=== PATIENT | male | born 1965 | race Caucasian/White ===

== ENCOUNTER 2017-03-20 12:36 | Inpatient (IN) | payer MEDICAID, OTHER ==
[2017-03-20] MEDS ORDERED: MAGNESIUM HYDROXIDE 2,400 MG/10 ML CUP PO PRN (15:47)
[2017-03-20] MEDS ORDERED: ACETAMINOPHEN TAB 325 MG TAB PO PRN (15:47)
[2017-03-20] MEDS ORDERED: MAG HYDROX/AL HYDROX/SIMETH 30 ML CUP PO PRN (15:47)
[2017-03-20 16:01] VITALS: BMI 24.6
--- NOTE | 2017-03-20 16:13 | P.HP ---
Psychiatric H&P - . H&P Date: 03/20/17 History & Physical: Identification: Patient is a 51-year-old male who was brought to the hospital from long-term, he states he was brought to long-term on March 18 due to failure to pay child support. He was then transferred here on a petition and certification. Patient had made statements while in long-term that he "felt like blowing my head off ". Patient states he did say that due to becoming increasingly frustrated with being in long-term. 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 He states that after the thousand dollar a month child support was taken from his check he was going home with $5 or $10. Patient states he got irritated with his low paychecks and the money that was due for child support, he had attempted to reduce this amount on 2 occasions without success and so he quit his job. 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 Patient states that about a month and a half ago he went to [facility] due to his increasing irritability and anger about his inability to pay his bills. He reports he was feeling depressed, getting angry and having outbursts, yelling and fighting. He reports no suicidal ideation, and states he was started on Effexor and after he was on his current dose, began to feel less irritable, stopped arguing with people and felt much less depressed. He states he was sleeping better and felt much calmer on the medication. He states his children were visiting him, as he was to have his 2 younger children for the month of February, when his came and got them from his house at night and he was picked up the next morning for lack of payment of child support. He reports he is behind by $5000. He states in long-term he was becoming increasingly agitated and upset and does admit to saying that he "felt like blowing his head off". Patient reports that he has no guns at home, he states he had them in the past but sold them for money to pay his child support. He states he does not want to , he has 3 children and wants to live. Patient reports that his new employer has paid his back child support and the patient reports planning to sell the home he is currently living in and move in with his mother. Patient states he is eager to begin his new job, stating he was supposed to start tomorrow. Patient is unable to endorse any symptoms of jannie, psychosis and denies any anxiety symptoms. Patient's depressive symptoms have only recently started and he denies any prior depressive symptoms. Past Psychiatric History: Patient denies any prior inpatient admissions, recently began at [facility] 1-1/2 months ago as his only outpatient psychiatric treatment. Past Medical/Surgical History: Patient denies any current medical problems and does report multiple fractures from playing sports, both ankles, all the fingers in both hands and his collarbone; he fractured his left femur at the age of 9 and fractured his collarbone at the age of 5. He reports he's had arthroscopy on his right knee due to sports injuries. Patient reports one LOC while playing football at the age of 18. Patient is also status post cholecystectomy. Patient denies any ALLERGIES to any medications. Allergies Allergy/AdvReac Type Severity Reaction Status Date / Time No Known Allergies Allergy Verified 12/06/14 03:17 Current Medications: Effexor 75 mg extended release every morning Family History: Patient denies any family history of psychiatric illness, denies any substance abuse history in the family and denies any completed suicides. Social History: Patient was born and raised in [place], his parents when he was 19 years of age. Both of his parents are still alive and he reports no contact with father since his parents . He is the oldest of 3 and has a brother and sister and reports being close to his mother and both siblings. His sister who has been providing financial support along with his mother, lives in [place]. Patient states that he completed high school and was very active in all sports. 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 He did this for the next 10 years until his DUI in July 2016 when he lost his job. 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 He reports he was for 21 years and in 2013, she asked him to leave as he was never at home. He has 3 children ages 21, 15 and 13. He states he has been living on his own and now will sell his mobile home and move in with his mother. His mother and sister have been assisting him financially since he lost his job driving trucks. He states when he lost that job his financial status decreased significantly as he was working 80 hours a week, with 40 hours of it being overtime pay. Patient denies any history of sexual, physical or emotional abuse. Substance Use History: Patient smokes 1-1/2 packs of cigarettes a day and has smoked for the last 30 years. Patient reports that he currently uses 4 beers a week and once a month will drink 6-8 beers with friends, he states he was drinking more in the past, about 4-5 beers a day for several months around the time of his DUI. Patient reports that he uses marijuana and has since the age of 16, usually 3 times a week. He denies any other drug abuse currently or in the past. Legal History: Patient states he has one prior DUI, recent failure to pay child support. Mental Status:Appearance/Attitude: Patient was dressed in hospital gown, personal hygiene was adequate and he was cooperative during the interview. Behavior: Patient exhibited no psychomotor retardation or agitation. Speech/Language: Patient was spontaneous, speech is of normal volume and rhythm. Thought Process: Patient was goal-directed and there is no evidence of any circumstantial or tangential thought. Thought Content: Denied any auditory or visual hallucinations and denied any paranoid or delusional ideation and none was elicited. Patient discussed his frustration with being in long-term as well as his anger and frustration about being unable to pay his bills. Patient reports that he sought treatment one half months ago as he was becoming increasingly angry and irritable, getting into outbursts and yelling with people. He was feeling slightly depressed at that time but reports no change in his level of energy or motivation. He reports that he was becoming frustrated with his inability to take more than 5 or $10 home from each paycheck. Suicidal/Homicidal Ideation: Patient denies any current suicidal ideation, states that he did say he "felt like blowing my head off" while in long-term and states it was due to his frustration with being there and reports that he has no wish to as he has 3 children. He reports no prior suicidal attempts or suicidal ideation. He denies any current homicidal ideation. Sensorium/Cognition: Patient is alert and oriented to person, place, and time and his memory is grossly intact. Mood/Affect: Patient's mood is euthymic, states he is not feeling depressed and was frustrated in long-term and his affect is appropriate. Insight/Judgement: Patient insight and judgment are fair. Strength/Weaknesses: Patient has a supportive family, stable living situation, employment Assessment: Patient presents after being taken to long-term for back child support, where he made the statement that he felt like blowing his head off. Patient has been in treatment for the last 1-1/[address] [facility] for increasing irritability and depression due to being unable to pay his bills. 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 He began to get behind in child support, struggling to paying his bills and became increasingly angry with outbursts and yelling and depressed. Patient was begun on Effexor at [facility] and he reports a good response to 75 mg every morning. He reports he is much less irritable and not arguing with anyone and is feeling much less depressed. 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 Patient is denying any current suicidal ideation, states that he has 3 children and he wants to live and only made that statement in long-term due to his frustration with being there. Patient denies that he has any guns at home stating that he sold them in the past for money. Admission Diagnoses: Major depressive disorder, single episode, moderate severity; cannabis use disorder, mild, tobacco use disorder, moderate Plan: Patient was agreeable to a voluntary admission, he will be continued on Effexor 75mg XR every morning to target his depression. Patient signed a RONAK to speak with his mother. Will place on general precautions, order group and activity therapy, labs will be ordered, CBC, CMP, UA, UDS, TSH. Patient and I discussed a brief hospital to stay to observe him, clarify his statements regarding guns. 03/20/17 15:31 03/20/17 15:58 03/20/17 15:59 03/20/17 16:04 03/20/17 16:06
[2017-03-21] MEDS: VENLAFAXINE HCL ER 75 MG CAP PO SCH (08:59)
[2017-03-21 09:19] LABS: Basophils % (A) 0 %; CH 33.7; CHCM 33.3; Eosinophils # (A) 0.1 k/uL (0-0.7); Eosinophils % (A) 1 %; HCT 47.1 % (39.0-53.0); Luc # (Auto) 0.07; Luc % (Auto) 1; Lymphocytes # (A) 1.2 k/uL (1.0-4.8); Lymphocytes % (A) 16 %; MCH 34.5 pg (25.0-35.0); MCHC 33.9 g/dL (31.0-37.0); MCV 101.8 fL (80.0-100.0); Macrocytosis Slight; Mean Platelet Volume 6.7; Monocytes # (A) 0.4 k/uL (0-1.0); Monocytes % (A) 5 %; Neutrophils # (A) 5.9 k/uL (1.3-7.7); Neutrophils % (A) 77 %; RBC 4.63 m/uL (4.30-5.90); RDW 13.8 % (11.5-15.5); WBC 7.7 k/uL (3.8-10.6); WBC (Perox) 7.34
[2017-03-21 09:32] LABS: ALT 34 U/L (21-72); AST 21 U/L (17-59); Alkaline Phosphatase 57 U/L (38-126); Anion Gap 7 mmol/L; Bilirubin, Delta 0.2 mg/dL (0.0-0.2); Blood Urea Nitrogen 20 mg/dL (9-20); Calcium 9.6 mg/dL (8.4-10.2); Carbon Dioxide 30 mmol/L (22-30); Chloride 103 mmol/L (98-107); Glucose 111 mg/dL (74-99); Non-African American GFR(MDRD) >60 (>60 ml/min/1.73 sqM); Potassium 5.1 mmol/L (3.5-5.1); Sodium 140 mmol/L (137-145); Total Bilirubin 0.9 mg/dL (0.2-1.3); Total Protein 7.3 g/dL (6.3-8.2)
--- NOTE | 2017-03-21 11:19 | P.PN ---
Progress Note - Text Interval history: The patient is found in the hallway he follows me to an interview room. The patient was admitted from the alf for suspected suicidal ideation. The patient states that he has been overwhelmed with legal and financial consequences due to nonpayment of child support. He states out of anger he punched a cement wall while in alf. Subsequently he has edema and bruising of his right hand. He had been placed on Effexor XR 75 mg daily by his outpatient psychiatrist he has found the medication helpful we have continued that medication here. Mental status exam: The patient is a male appearing his stated age he is dressed in hospital gowns. Eye contact is appropriate he's pleasant cooperative and easily directed. There is noticeable edema of his right hand with bruising. He states he does not have any suicidal ideation intent or plan he endorses no homicidal ideation intent or plan. He is endorsing no symptoms of psychosis there is no evidence of psychosis. He does not appear hypomanic or manic. Insight and judgment grossly intact however it was impaired when he was in the alf. There is no verbal or physical aggressiveness during this session. Plan: The patient will continue on the Effexor XR he finds effective. We will consider titrating the dose if needed. We will go ahead and x-ray his right hand to rule out fracture. We will monitor him for safety and encourage his participation in the milieu. I don't signs reviewed.
--- NOTE | 2017-03-21 11:29 | XR ---
EXAMINATION TYPE: XR hand complete RT DATE OF EXAM: 03/21/2017 CLINICAL HISTORY: pain TECHNIQUE: Frontal, lateral and oblique images of the right hand are obtained. COMPARISON: None. FINDINGS: Cortical lucency is noted at the base of the right fifth metacarpal felt to reflect fractur e. There appears to be mild comminution and intra-articular extension. The joint spaces appear within normal limits. Soft tissue edema noted. IMPRESSION: Fracture at the base of the right fifth metacarpal. ICD 10 closed FRACTURE, INITIAL EVALUATION
[2017-03-22] MEDS: VENLAFAXINE HCL ER 75 MG CAP PO SCH (08:08)
--- NOTE | 2017-03-22 09:38 | P.PN ---
Progress Note - Text Interval history: The patient is found in group he follows me to an interview room. He reports his mood is "good". He states that he is finding the groups supportive and useful. He is relieved to know that his boss pages back child support and he states the correction issue is "all done". He states he never really did feel suicidal but was just overwhelmed with circumstances. He has been seen by the physician insurance legal assistant from orthopedics and the patient is now wearing an immobilizer and Saurabh wrap on his right hand. He states he was told he will need to follow-up as an outpatient with orthopedics and might require surgery if the fracture does not heal appropriately due to its location. Mental status exam: The patient is alert he is pleasant cooperative. He readily engages in the interview. Eye contact is good. He is wearing eyeglasses and is dressed in his own clothing a T-shirt and shorts. His affect is euthymic. He reports no suicidal or homicidal ideation intent or plan. He endorses no auditory or visual hallucinations or specific delusions. There is no observed evidence of psychosis. He does not appear hypomanic or manic. There is no verbal or physical aggressiveness. Insight and judgment improving. He is oriented to person place and date. Thought process is linear and goal- directed. Plan: The patient will continue on the Effexor XR. It appears that he is clinically stabilizing. I would anticipate he would be appropriate for discharge in the next 1-2 days if he demonstrates continued stability/ improvement. He is encouraged to continue compliant with groups. Vital signs reviewed. We will continue to monitor him for safety.
--- NOTE | 2017-03-22 10:08 | P.CNOR ---
History of Present Illness - [facility] Consult date: 03/22/17 Consult reason: fracture History of present illness: This is a 51-year-old male who is seen and evaluated on the mental health unit today. Patient was transferred from [facility] to [facility] on 03/20/2017 with apparent suicidal ideation. He was admitted to the psychiatric floor for further evaluation. Apparently the patient has been going through some legal and financial trouble. Patient was brought in by authorities due to not pain child support. While in [facility], he punched a cement wall and also mentioned suicide which prompted his admission to [facility]. He is been evaluated by the mental health physicians, and is being followed daily. During the stay, he had noted significant bruising and swelling to his hand. X-rays were ordered, which demonstrated a fifth metacarpal base fracture. However orthopedic team was consulted. Patient is seen on the unit today, he appears comfortable. He is having very minimal discomfort with regards to the right hand. He is not currently splinted or casted. He notes discomfort to the right hand when he makes a full fist or has direct contact over the fifth metacarpal. He denies any discomfort of the right elbow or right shoulder. He denies any left upper extremity pain, bilateral lower extremity pain, new onset cervical, thoracic or lumbar pain. Review of Systems Constitutional: Reports as per [facility] Past Medical History Past Medical History: No Reported History Additional Past Medical History / Comment(s): ganglian cyst bilat wrist History of Any Multi-Drug Resistant Organisms: None Reported Past Surgical History: Cholecystectomy, Orthopedic Surgery Additional Past Surgical History / Comment(s): bilat ankle surgery Past Psychological History: No Psychological Hx Reported Smoking Status: Current every day smoker Past Alcohol Use History: Daily Past Drug Use History: None Reported Medications and Allergies Home Medications Medication Instructions Recorded Confirmed Type Venlafaxine HCl [Effexor XR] 75 mg PO DAILY 03/20/17 03/20/17 History Allergies Allergy/AdvReac Type Severity Reaction Status Date / Time No Known Allergies Allergy Verified 03/20/17 15:41 Physical Examination Right upper extremity: No obvious open lesions or sores visualized There is ecchymosis and soft tissue swelling noted both on the volar and dorsal aspect of the hand in the fifth metacarpal region There is tenderness with palpation noted both the volar and dorsal aspect of the fifth metacarpal No obvious malalignment is noted of fifth digit He is able to move all the fingers with no difficulty, he is able to make a fist His radial pulses 2+, sensory exam to light touch is intact throughout the extremity No discomfort with palpation around the elbow or shoulder Results - Labs Labs: H & H 03/21/17 Range/Units 08:56 Hgb 16.0 (13.0-17.5) gm/dL Hct 47.1 (39.0-53.0) % Result Diagrams: 03/21/17 08:56 03/21/17 08:56 - Diagnostic results Wrist/Hand x-ray: report reviewed, image reviewed Assessment and Plan Plan: Imaging: Multiple views of the hand were reviewed, images do demonstrate a right fifth metacarpal intra-articular base fracture with displacement Assessment: 1. Right fifth metacarpal intra-articular base fracture 2. Status post punching a wall Plan: 1. I was able to discuss this case, including both physical exam findings and imaging studies with my attending Dr. Rodriguez. Conservative management will be attempted at this time. I did place the patient in a ulnar gutter splint. He was advised to avoid any excess activity with the right hand. 2. Pain control, utilize anti-inflammatories as needed and ice 3. No orthopedic surgical intervention 4. Psychiatric recommendations 5. Patient advised to follow-up in 1 week for further x-ray and clinical evaluation with Dr. Rodriguez Time with Patient: Less than 30
--- NOTE | 2017-03-22 15:38 | P.CONS ---
History of Present Illness - Reason for Consult Consult date: 03/22/17 Medical management - Chief Complaint Suicidal thoughts - History of Present Illness This is a 51-year-old gentleman with no known past medical history was currently admitted to the psychiatry unit at [facility]. I was asked to see him for medical management. Apparently patient was brought to the emergency room by police as he was recently incarcerated and was having problems with adjusting in [facility]. He apparently Pont[place] cement wall and medication some nonspecific suicidal thoughts which ended up with him being in the emergency room. He is currently awake and alert. He denies any suicidal thoughts at this time. He denies any significant chronic history of depression. He was found to have a fifth metacarpal base fracture on x-ray in the emergency room and was seen and evaluated by orthopedic. His pain is well controlled today. Review of Systems Review of system: 14 points review of systems were obtained and were negative except to what were mentioned in the HPI. Past Medical History Past Medical History: No Reported History Additional Past Medical History / Comment(s): ganglian cyst bilat wrist History of Any Multi-Drug Resistant Organisms: None Reported Past Surgical History: Cholecystectomy, Orthopedic Surgery Additional Past Surgical History / Comment(s): bilat ankle surgery Past Psychological History: No Psychological Hx Reported Smoking Status: Current every day smoker Past Alcohol Use History: Daily Past Drug Use History: None Reported Medications and Allergies Home Medications Medication Instructions Recorded Confirmed Type Venlafaxine HCl [Effexor XR] 75 mg PO DAILY 03/20/17 03/20/17 History Allergies Allergy/AdvReac Type Severity Reaction Status Date / Time No Known Allergies Allergy Verified 03/20/17 15:41 Physical Exam Vitals: Vital Signs Temp Pulse Resp BP 03/22/17 06:39 97.5 F L 55 L 16 133/87 General: The patient is awake and alert, in no distress Eye: there is normal conjunctiva bilaterally. Neck: The neck is supple, there is no JVD. Cardiovascular: Normal S1-S2, no S3-S4, no murmurs. Respiratory: Lungs clear to auscultation bilaterally Gastrointestinal: Abdomen is soft, nontender Musculoskeletal: There is no pedal edema. Right hand in ulnar gutter splint Neurological:. Speech is normal. Skin: Skin is warm and dry Results CBC & Chem 7: 03/21/17 08:56 03/21/17 08:56 Assessment and Plan Plan: 1. Reported suicidal thoughts: Currently patient is a 89 2. Suspected depression/adjustment disorder 3. Right fifth metacarpal base fracture managed conservatively with the splint 4. Tobacco abuse Today, I reviewed her medication list and lab work results. Continue current regimen. Thank you very much for the consultation. I will continue to follow up on the patient closely.
[2017-03-23 06:44] VITALS: BP 161/87; PULSE 118; RESP 18; TEMP 97.7
[2017-03-23] MEDS: VENLAFAXINE HCL ER 75 MG CAP PO SCH (08:47)
--- NOTE | 2017-03-23 12:06 | P.DS ---
Providers Date of admission: 03/20/17 14:09 Expected date of discharge: 03/23/17 Attending physician: Sandi Zhu MD Consults: 03/20/17 15:47 Consult Physician Routine Consulting Provider: Maninder Hart Consult Reason/Comments: H & P and medical follow up Do you want consulting provider notified?: Yes 03/21/17 13:51 Consult Physician Routine Consulting Provider: Rosales Rodriguez Consult Reason/Comments: FX base R fifth meta carpal Do you want consulting provider notified?: Yes Primary care physician: Stated None Hospital Course: Discharge Diagnoses: Major depressive disorder, single episode moderate severity ; cannabis use disorder, mild; tobacco use disorder, moderate; fracture at the base of the right fifth metacarpal Reason for Admission: Patient is a 51-year-old male was brought to the hospital from longterm where he stated that he "felt like blowing my head off". Patient states that he was taken to longterm due to failure to pay child support and stated he owed about $5000 in back child support. He states he had his 2 children visiting with him and then the next day his picked up the children and the police came to take him to longterm. 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 He states he was having difficulty paying his bills, paying child support was become increasingly angry and upset. He reports he went to see a psychiatrist at [facility] due to his increasing episodes of anger, frustration and feeling depressed. He states he did not want to when he made the statement in longterm and has never felt suicidal nor made any attempts in the past. He reports his problems are related to his frustration with his job, financial status, and ongoing difficulties with his ex-. Patient was taking Effexor 75 mg a day and reports that it was working well and he had not been feeling as angry or depressed until the recent episode. Patient states he was angry and frustrated and felt trapped in longterm and did hit the wall with his hand and states he did make the above statement. Hospital Course: Patient was admitted and signed a voluntary admission, he was ordered group and activity therapy, routine blood work was also performed and the patient was continued on his Effexor 75 mg extended release in the morning. Patient attended groups and reports that they were very beneficial to him, learned new coping mechanisms and states he is feeling much less frustrated. He reported that he had found a new job, his new boss had also paid off his back child support and he had plans to return to live with his mother and sell his prior home to put some money in the bank. Patient complained of swelling and pain in his right hand and so had an x-ray which revealed a metacarpal fracture at the base of his fifth finger and was placed in an ulnar gutter splint after being seen by orthopedics in consultation. Patient was seen on the day of discharge and reported that he is feeling much calmer, feels it is been very beneficial for him to be in the hospital and has decided to stop his use of alcohol once he is discharged. Patient's labs revealed no significant abnormalities. Discharge Mental Status:Appearance/Attitude: Patient was neatly dressed, his right hand had a splint on the last 2 fingers and he was cooperative. Behavior: Patient exhibited no psychomotor agitation or retardation. Speech/Language: Patient's speech was spontaneous and of normal volume and rhythm. Thought Process: Patient was goal-directed, he was not tangential or circumstantial. Thought Content: Patient denies any auditory or visual hallucinations and no delusions or paranoid ideation were elicited. Patient reports that he is feeling much less frustrated, calm or in reports that he is "glad I stayed". He reported learning new coping mechanisms to deal with his anger. He also reported that he will discontinue his use of alcohol is his only being creating difficulties for him. Suicidal/Homicidal Ideation: Alvarez any current suicidal or homicidal ideation and stated again that there were no guns at his home or in his mother's home. Sensorium/Cognition: Patient was alert and oriented to person, place, and time and his memory was grossly intact. Mood/Affect: Patient's mood was euthymic and his affect was appropriate. Insight/Judgement: Judgment are intact. Laboratory Last Values WBC 7.7 k/uL (3.8-10.6) 03/21/17 08:56 RBC 4.63 m/uL (4.30-5.90) 03/21/17 08:56 Hgb 16.0 gm/dL (13.0-17.5) 03/21/17 08:56 Hct 47.1 % (39.0-53.0) 03/21/17 08:56 MCV 101.8 fL (80.0-100.0) H 03/21/17 08:56 MCH 34.5 pg (25.0-35.0) 03/21/17 08:56 MCHC 33.9 g/dL (31.0-37.0) 03/21/17 08:56 RDW 13.8 % (11.5-15.5) 03/21/17 08:56 Plt Count 222 k/uL (150-450) 03/21/17 08:56 Neutrophils % 77 % 03/21/17 08:56 Lymphocytes % 16 % 03/21/17 08:56 Monocytes % 5 % 03/21/17 08:56 Eosinophils % 1 % 03/21/17 08:56 Basophils % 0 % 03/21/17 08:56 Neutrophils # 5.9 k/uL (1.3-7.7) 03/21/17 08:56 Lymphocytes # 1.2 k/uL (1.0-4.8) 03/21/17 08:56 Monocytes # 0.4 k/uL (0-1.0) 03/21/17 08:56 Eosinophils # 0.1 k/uL (0-0.7) 03/21/17 08:56 Basophils # 0.0 k/uL (0-0.2) 03/21/17 08:56 Macrocytosis Slight 03/21/17 08:56 Sodium 140 mmol/L (137-145) 03/21/17 08:56 Potassium 5.1 mmol/L (3.5-5.1) 03/21/17 08:56 Chloride 103 mmol/L (98-107) 03/21/17 08:56 Carbon Dioxide 30 mmol/L (22-30) 03/21/17 08:56 Anion Gap 7 mmol/L 03/21/17 08:56 BUN 20 mg/dL (9-20) 03/21/17 08:56 Creatinine 1.05 mg/dL (0.66-1.25) 03/21/17 08:56 Est GFR (MDRD) Af Amer >60 (>60 ml/min/1.73 sqM) 03/21/17 08:56 Est GFR (MDRD) Non-Af >60 (>60 ml/min/1.73 sqM) 03/21/17 08:56 Glucose 111 mg/dL (74-99) H 03/21/17 08:56 Calcium 9.6 mg/dL (8.4-10.2) 03/21/17 08:56 Total Bilirubin 0.9 mg/dL (0.2-1.3) 03/21/17 08:56 Conjugated Bilirubin 0.0 mg/dL (0.0-0.3) 03/21/17 08:56 Unconjugated Bilirubin 0.7 mg/dL (0.0-1.1) 03/21/17 08:56 Delta Bilirubin 0.2 mg/dL (0.0-0.2) 03/21/17 08:56 AST 21 U/L (17-59) 03/21/17 08:56 ALT 34 U/L (21-72) 03/21/17 08:56 Alkaline Phosphatase 57 U/L (38-126) 03/21/17 08:56 Total Protein 7.3 g/dL (6.3-8.2) 03/21/17 08:56 Albumin 4.4 g/dL (3.5-5.0) 03/21/17 08:56 TSH 1.440 mIU/L (0.465-4.680) 03/21/17 08:56 Risk Assessment: Patient is a low risk should he avoid alcohol, and remain compliant with his treatment. 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 Patient will continue with [facility] and states he has an appointment on March 24 with his counselor and on March 28 with a psychiatrist. Patient will continue on Effexor 75 mg extended release every morning and reports that he has sufficient medication at home and no discharge prescription will be given. Patient was also told that he should follow-up in one week with Dr. Sage to have his hand re-x-rayed and examined. He was encouraged to continue to avoid any use of alcohol and I discussed with him his use of marijuana and trying to discontinue this as well. Patient is unwilling to stop smoking but was encouraged to do so. Patient Condition at Discharge: Stable Plan - Discharge Summary New Discharge Prescriptions: Continue Venlafaxine HCl [Effexor XR] 75 mg PO DAILY Discharge Medication List Venlafaxine HCl [Effexor XR] 75 mg PO DAILY 03/20/17 [History] Follow up Appointment(s)/Referral(s): Intake, Intake [Other] - 03/24/17 3:30 pm () Rosales Rodriguez MD [STAFF PHYSICIAN] - 1 Week Activity/Diet/Wound Care/Special Instructions: Orthopedic discharge instructions: 1. Do not remove ulnar gutter splint 2. Anti-inflammatories as needed for discomfort 3. Avoid strenuous use with the right hand 4. [facility] 1 [facility] for further evaluation Discharge Disposition: HOME SELF-CARE
== END 2017-03-23 13:29 | disposition home or self-care (01) | DRG 885 ==
LOC: 3MHU 14:09
PROVIDERS: ADMIT Psychiatry & Neurology Psychiatry; ATTEND Psychiatry & Neurology Psychiatry
DX: F32.1 Major depressive disorder, single episode, moderate (principal); R45.851 Suicidal ideations; F12.10 Cannabis abuse, uncomplicated; F17.210 Nicotine dependence, cigarettes, uncomplicated; S62.316A Displaced fracture of base of fifth metacarpal bone, right hand, initial encounter for closed fracture; X58.XXXA Exposure to other specified factors, initial encounter; Y92.9 Unspecified place or not applicable
CPT/HCPCS: 80053; 82248; 84443; 85025

== ENCOUNTER 2019-08-21 03:07 | Inpatient (IN) | payer MEDICAID, OTHER ==
--- NOTE | 2019-08-21 03:44 | ED ---
Psych HPI - General Chief Complaint: Psychiatric Symptoms Stated Complaint: PD Petition Time Seen by Provider: 08/21/19 03:26 Source: patient, police Mode of arrival: ambulatory Limitations: physical limitation (patient is not cooperative with the history and physical) - History of Present Illness Initial Comments: this patient is a 54-year-old man who is brought here by [facility] department personnel for psychiatric evaluation. The patient has reportedly made suicidal statements to them. When I interview the patient, he states "I'm just trying to sleep." He declines to discuss the statements which are mentioned in the petition followed by law enforcement. MD Complaint: suicidal ideation -: hour(s) - Related Data Allergies Allergy/AdvReac Type Severity Reaction Status Date / Time No Known Allergies Allergy Verified 08/21/19 03:23 Review of Systems ROS Statement: Those systems with pertinent positive or pertinent negative responses have been documented in the HPI. ROS Other: All systems not noted in ROS Statement are negative. Limitations: ROS unobtainable due to patients medical condition (not cooperative with history) Past Medical History Past Medical History: No Reported History Additional Past Medical History / Comment(s): ganglian cyst bilat wrist History of Any Multi-Drug Resistant Organisms: None Reported Past Surgical History: Cholecystectomy, Orthopedic Surgery Additional Past Surgical History / Comment(s): bilat ankle surgery, right knee x 4 Past Psychological History: No Psychological Hx Reported Smoking Status: Current every day smoker Past Alcohol Use History: Occasional Past Drug Use History: Marijuana General Exam Limitations: no limitations General appearance: alert, in no apparent distress Head exam: Present: atraumatic, normocephalic Eye exam: Present: normal appearance Respiratory exam: Present: normal lung sounds bilaterally. Absent: respiratory distress, wheezes, rales, rhonchi, stridor Cardiovascular Exam: Present: regular rate, normal rhythm, normal heart sounds. Absent: systolic murmur, diastolic murmur, rubs, gallop Neurological exam: Present: alert Skin exam: Present: warm, dry, intact, normal color. Absent: rash Course Vital Signs 08/21/19 08/21/19 03:15 05:30 Temperature 98.7 F Pulse Rate 98 84 Respiratory 18 18 Rate Blood Pressure 151/102 142/64 O2 Sat by Pulse 96 95 Oximetry Disposition Clinical Impression: Suicidal ideation Disposition: ADMITTED IP TO THIS HOSP Condition: Fair Is patient prescribed a controlled substance at d/c from ED?: No Referrals: Chad Leija MD [Primary Care Provider] - 1-2 days
[2019-08-21] MEDS ORDERED: LORazepam 1 MG TAB PO PRN (05:35)
[2019-08-21] MEDS ORDERED: MAG HYDROX/AL HYDROX/SIMETH 30 ML CUP PO PRN (05:35)
[2019-08-21] MEDS ORDERED: ZIPRASIDONE 20 MG VIAL IM PRN (05:35)
[2019-08-21] MEDS ORDERED: ACETAMINOPHEN TAB 325 MG TAB PO PRN (05:35)
[2019-08-21] MEDS ORDERED: MAGNESIUM HYDROXIDE 2,400 MG/10 ML CUP PO PRN (05:35)
[2019-08-21 07:22] VITALS: RESP 16
[2019-08-21 07:23] LABS: Basophils % (A) 0 %; Eosinophils # (A) 0.1 k/uL (0-0.7); Eosinophils % (A) 1 %; HCT 46.3 % (39.0-53.0); HGB 15.6 gm/dL (13.0-17.5); Lymphocytes # (A) 1.5 k/uL (1.0-4.8); Lymphocytes % (A) 13 %; MCH 32.5 pg (25.0-35.0); MCHC 33.6 g/dL (31.0-37.0); MCV 96.6 fL (80.0-100.0); Mean Platelet Volume 6.1; Monocytes # (A) 0.4 k/uL (0-1.0); Monocytes % (A) 3 %; Neutrophils % (A) 82 %; Platelet Count 268 k/uL (150-450); RDW 12.6 % (11.5-15.5)
[2019-08-21 07:30] LABS: ALT 24 U/L (4-49); AST 29 U/L (17-59); African American GFR (CKD) >90 (>60 ml/min/1.73 sqM); Albumin 4.6 g/dL (3.5-5.0); Alkaline Phosphatase 69 U/L (38-126); Anion Gap 12 mmol/L; Bilirubin, Delta 0.2 mg/dL (0.0-0.2); Bilirubin,Unconjugated 0.2 mg/dL (0.0-1.1); Blood Urea Nitrogen 17 mg/dL (9-20); Calcium 9.7 mg/dL (8.4-10.2); Carbon Dioxide 24 mmol/L (22-30); Chloride 105 mmol/L (98-107); Cholesterol 182 mg/dL (<200); Glucose 100 mg/dL (74-99); HDL Cholesterol 57 mg/dL (40-60); LDL Cholesterol,Calculated 93 mg/dL (0-99); Non-African American GFR(CKD) >90 (>60 ml/min/1.73 sqM); Potassium 4.6 mmol/L (3.5-5.1); Sodium 141 mmol/L (137-145); Total Bilirubin 0.4 mg/dL (0.2-1.3); Total Protein 7.7 g/dL (6.3-8.2); Triglycerides 159 mg/dL (<150)
[2019-08-21 08:32] LABS: Appearance,Urine Clear (Clear); Bilirubin,Urine Negative (Negative); Blood,Urine Negative (Negative); Color,Urine Yellow; Glucose,Urine (UA) Negative (Negative); Ketones,Urine Trace (Negative); Leukocyte Esterase,Urine Negative (Negative); Nitrite,Urine Negative (Negative); Protein,Urine Negative (Negative); Specific Gravity,Urine 1.021 (1.001-1.035); Urobilinogen,Urine <2.0 mg/dL (<2.0)
[2019-08-21] MEDS: NICOTINE 14MG/24HR PATCH TRANSDERM SCH (10:15)
--- NOTE | 2019-08-21 14:44 | P.HP ---
Psychiatric H&P - . H&P Date: 08/21/19 History & Physical: Allergies Allergy/AdvReac Type Severity Reaction Status Date / Time No Known Allergies Allergy Verified 08/21/19 03:23 Vital Signs Temp 98.7 F 08/21/19 03:15 Pulse 86 08/21/19 07:08 Resp 16 08/21/19 07:08 BP 145/69 08/21/19 07:08 Pulse Ox 95 08/21/19 07:08 Intake & Output 08/20/19 08/21/19 08/21/19 18:59 06:59 18:59 Weight 83.915 kg 92.669 kg Laboratory Last Values WBC 11.0 k/uL (3.8-10.6) H 08/21/19 07:00 RBC 4.80 m/uL (4.30-5.90) 08/21/19 07:00 Hgb 15.6 gm/dL (13.0-17.5) 08/21/19 07:00 Hct 46.3 % (39.0-53.0) 08/21/19 07:00 MCV 96.6 fL (80.0-100.0) 08/21/19 07:00 MCH 32.5 pg (25.0-35.0) 08/21/19 07:00 MCHC 33.6 g/dL (31.0-37.0) 08/21/19 07:00 RDW 12.6 % (11.5-15.5) 08/21/19 07:00 Plt Count 268 k/uL (150-450) 08/21/19 07:00 Neutrophils % 82 % 08/21/19 07:00 Lymphocytes % 13 % 08/21/19 07:00 Monocytes % 3 % 08/21/19 07:00 Eosinophils % 1 % 08/21/19 07:00 Basophils % 0 % 08/21/19 07:00 Neutrophils # 9.0 k/uL (1.3-7.7) H 08/21/19 07:00 Lymphocytes # 1.5 k/uL (1.0-4.8) 08/21/19 07:00 Monocytes # 0.4 k/uL (0-1.0) 08/21/19 07:00 Eosinophils # 0.1 k/uL (0-0.7) 08/21/19 07:00 Basophils # 0.0 k/uL (0-0.2) 08/21/19 07:00 Sodium 141 mmol/L (137-145) 08/21/19 07:00 Potassium 4.6 mmol/L (3.5-5.1) 08/21/19 07:00 Chloride 105 mmol/L (98-107) 08/21/19 07:00 Carbon Dioxide 24 mmol/L (22-30) 08/21/19 07:00 Anion Gap 12 mmol/L 08/21/19 07:00 BUN 17 mg/dL (9-20) 08/21/19 07:00 Creatinine 0.91 mg/dL (0.66-1.25) 08/21/19 07:00 Est GFR (CKD-EPI)AfAm >90 (>60 ml/min/1.73 sqM) 08/21/19 07:00 Est GFR (CKD-EPI)NonAf >90 (>60 ml/min/1.73 sqM) 08/21/19 07:00 Glucose 100 mg/dL (74-99) H 08/21/19 07:00 Calcium 9.7 mg/dL (8.4-10.2) 08/21/19 07:00 Total Bilirubin 0.4 mg/dL (0.2-1.3) 08/21/19 07:00 Conjugated Bilirubin 0.0 mg/dL (0.0-0.3) 08/21/19 07:00 Unconjugated Bilirubin 0.2 mg/dL (0.0-1.1) 08/21/19 07:00 Delta Bilirubin 0.2 mg/dL (0.0-0.2) 08/21/19 07:00 AST 29 U/L (17-59) 08/21/19 07:00 ALT 24 U/L (4-49) 08/21/19 07:00 Alkaline Phosphatase 69 U/L (38-126) 08/21/19 07:00 Total Protein 7.7 g/dL (6.3-8.2) 08/21/19 07:00 Albumin 4.6 g/dL (3.5-5.0) 08/21/19 07:00 Triglycerides 159 mg/dL (<150) H 08/21/19 07:00 Cholesterol 182 mg/dL (<200) 08/21/19 07:00 LDL Cholesterol, Calc 93 mg/dL (0-99) 08/21/19 07:00 HDL Cholesterol 57 mg/dL (40-60) 08/21/19 07:00 TSH 1.770 mIU/L (0.465-4.680) 08/21/19 07:00 Urine Color Yellow 08/21/19 06:30 Urine Appearance Clear (Clear) 08/21/19 06:30 Urine pH 6.0 (5.0-8.0) 08/21/19 06:30 Ur Specific [place] 1.021 (1.001-1.035) 08/21/19 06:30 Urine Protein Negative (Negative) 08/21/19 06:30 Urine Glucose (UA) Negative (Negative) 08/21/19 06:30 Urine Ketones Trace (Negative) H 08/21/19 06:30 Urine Blood Negative (Negative) 08/21/19 06:30 Urine Nitrite Negative (Negative) 08/21/19 06:30 Urine Bilirubin Negative (Negative) 08/21/19 06:30 Urine Urobilinogen <2.0 mg/dL (<2.0) 08/21/19 06:30 Ur Leukocyte Esterase Negative (Negative) 08/21/19 06:30 08/21/19 14:37 IDENTIFYING DATA: 54-year-old male patient HPI: patient admitted to the inpatient psychiatric unit regarding concerns of suicidal thinking. Patient states that he went out on his birthday the and got drunk and the police were called. He states he doesn't remember saying anything but says he might of said something that got him here. Patient relays that they said that he was threatening his girlfriend's mom and that sand mixer were called. He denies having had thoughts of suicide lately. Per chart record there was some verbalization of suicidal ideation that prompted his admission. He makes reference to after child-support having $81 per week. Regarding his mood lately says it's been doing fine he has been paying his child support and working every day. He has concerns about losing his job with being in the hospital. PAST PSYCHIATRIC HISTORY: one prior admission where he had been drinking as well. She denies any history of suicide attempts. He says his been off antidepressant for about a year and a half. He was taking something that was 300 mg. He did okay with it. He does see a counselor once or twice a month , currently not seeing a psychiatrist. PMH:arthritis, multiple broken bones ALLERGIES: no known ALLERGIES MEDICATIONS: Tylenol when necessary, Maalox when necessary, Ativan when necessary, milk of magnesia when necessary, Habitrol patch, Geodon when necessary CHEMICAL DEPENDENCY HISTORY: drinks alcohol about every couple of months. Marijuana he uses at bedtime every day. FAMILY PSYCHIATRIC HISTORY: denies FAMILY CHEMICAL DEPENDENCY HISTORY: none known at this time SOCIAL HISTORY: says he lives in a [employer] apartment. He works estimating 40 hours a week. He's been once and . He has a current girlfriend of 2 years. He has 3 children from his marriage. He states he is working at being able to be back in his children's life. MENTAL STATUS EXAM: he is alert and cooperative with the interview. His speech is fluent, not rapid or pressured. Thought processes organized. His mood is described as "anxious." He says he is worried about his job. He denies any thoughts of harm to self or others. No evidence of psychosis or significant agitation. Cognitively appears very grossly intact. I do not note any significant disorientation or memory disturbance. His insight is adequate, judgment shows evidence of recent impairment. STRENGTHS/WEAKNESSES: strengthssome supports; weaknessescoping skills INTELLECTUAL FUNCTIONING: average IMPRESSIONS: unspecified depressive disorder; rule out alcohol use disorder; rule out cannabis use disorder PLAN: patient is admitted to the inpatient psychiatric unit on a voluntary basis. He is placed on SP 15 minute precautions. Baseline laboratory workup will be done the patient and medical consultation will be ordered. Continue to monitor regarding suicidal ideations. I did discuss reinitiation of Wellbutrin which he will consider.look into any support systems. Estimated length of stay is 1-3 days. Prognosis is guarded.
[2019-08-21] MEDS: buPROPion XL 150 MG TAB.ER.24H PO SCH ×2 (15:30→15:34)
--- NOTE | 2019-08-21 19:34 | P.CONS ---
History of Present Illness - Reason for Consult Consult date: 08/21/19 medical management Requesting physician: Sunday Potts - Chief Complaint suicidal ideation - History of Present Illness Consultation: This is a pleasant 54-year-old patient Dr. Leija. Patient was celebrating his 54nd birthday on [birth year]. Decided to have a few drinks. He did get drunk. Apparently he said he wanted to kill himself. He was taken out at [facility]. He was discharged from there and brought him down to the ER. At [facility]. Patient was petitioned. Patient did come around and he said he did not remember. He said he is not suicidal. He does not want to do that. He does play child support. He also works to pay for the same. He may be depressed but no suicidal at all. He said he simply controlled. He was celebrating his birthday. Appetite is good. Patient does smoke cigarettes and does smoke marijuana to go to sleep. He goes is on marijuana. Denies drinking alcohol a regular basis Review of systems: GEN.: None EYES: None HEENT: None NECK: None RESPIRATORY: Occasional cough CARDIOVASCULAR: None GASTROINTESTINAL: None GENITOURINARY: None MUSCULOSKELETAL: None LYMPHATICS: None HEMATOLOGICAL: None PSYCHIATRY: Sometimes a bit low NEUROLOGICAL: None. Past medical history to include: Ganglion cyst bilateral wrist, depression Social history: Smokes about a pack a day and also smokes marijuana at night to go to sleep. Alcohol occasionally. Denies use of any other recreational drugs. Patient is currently single and pays child support. Family history: Reviewed, noncontributory to presentation Physical examination: VITAL SIGNS: 98.7, 98, 18, 142/64, 95% on room air GENERAL: 29.3, BMI, sitting up, comfortable]. EYES: Pupils equal. Conjunctiva normal. HEENT: External appearance of nose and ears normal, oral cavity grossly normal. NECK: JVD not raised; masses not palpable. HEART: First and second heart sounds are normal; no edema. LUNGS: Respiratory rate normal; slightly decreased breath sounds. ABDOMEN: Soft, nontender, liver spleen not palpable, no masses palpable. PSYCH: [Alert and oriented x3; mood and affect slightly anxious. NEUROLOGICAL: Cranial nerves grossly intact; no facial asymmetry, power and sensation grossly intact. LYMPHATICS: No lymph nodes palpable in the axilla and neck INVESTIGATIONS, reviewed in the clinical context: White count 11 hemoglobin 15.6 potassium 4.6 creatinine 0.91 TSH 1.7 Assessment: -Chronic nicotine dependence patient cigarette smoker -Daily marijuana use for insomnia -Chronic idiopathic insomnia -Depression otherwise specified Plan: Discussed with the patient overnight smoking and marijuana. Unclear if patient actually was suicidal versus under the influence of alcohol and made the statement contrary to what he was active feeling. Patient being followed by psychiatry unit and undergoing therapy. Patient to follow-up with his PCP upon discharge. Thank you Dr. Potts Past Medical History Past Medical History: No Reported History Additional Past Medical History / Comment(s): ganglian cyst bilat wrist History of Any Multi-Drug Resistant Organisms: None Reported Past Surgical History: Cholecystectomy, Orthopedic Surgery Additional Past Surgical History / Comment(s): bilat ankle surgery, right knee x 4 Past Anesthesia/Blood Transfusion Reactions: No Reported Reaction Smoking Status: Current every day smoker Medications and Allergies Allergies Allergy/AdvReac Type Severity Reaction Status Date / Time No Known Allergies Allergy Verified 08/21/19 03:23 Physical Exam Vitals: Vital Signs Temp Pulse Pulse Resp BP BP Pulse Ox 08/21/19 07:08 86 16 145/69 95 08/21/19 05:30 84 18 142/64 95 08/21/19 03:15 98.7 F 98 18 151/102 96 Intake and Output 08/21/19 08/21/19 08/21/19 06:59 14:59 22:59 Other: Weight 83.915 kg 92.669 kg Results CBC & Chem 7: 08/21/19 07:00 08/21/19 07:00 Labs: Abnormal Lab Results - Last 24 Hours (Table) 08/21/19 08/21/19 08/21/19 Range/Units 06:30 07:00 07:00 WBC 11.0 H (3.8-10.6) k/uL Neutrophils # 9.0 H (1.3-7.7) k/uL Glucose 100 H (74-99) mg/dL Triglycerides 159 H (<150) mg/dL Urine Ketones Trace H (Negative)
[2019-08-22] MEDS: buPROPion XL 150 MG TAB.ER.24H PO SCH (09:50)
[2019-08-22] MEDS: NICOTINE 14MG/24HR PATCH TRANSDERM SCH (09:51)
[2019-08-22 11:17] LABS: Urine Alcohol Positive (Negative); Urine Barbiturate Negative (Negative); Urine Cocaine Negative (Negative); Urine Methadone Negative (Negative); Urine Opiates Positive (Negative); Urine Phencyclidine Negative (Negative)
[2019-08-22 12:12] LABS: Hemoglobin A1C 5.6 % (4.0-6.0)
--- NOTE | 2019-08-22 14:38 | P.PN ---
Subjective Progress Note Date: 08/22/19 PROGRESS NOTE: Patient was seen and chart was reviewed. Case discussed with staff. Patient states that He was going to groups and trying to participate as best as could. Patient claims that he does not have any mental health issues and is ready to be discharged. The patient appears to be somewhat agitated and in this insisting on getting discharged KEARA. The patient reports multiple stressors and stated that he is afraid of losing his job and has to pay a large amount of money for child support he claims that she slept better last night and does not remember having a nightmare. At this time patient denies any suicidal or homical ideations, intent or plan. Patient denies any auditory, visual hallucinations and denies any paranoia or delusions. Patient denies any side effects from the medications and has been compliant with meds. Objective - Vital Signs Vital signs: Vital Signs Temp 98.5 F 08/22/19 06:31 Pulse 88 08/22/19 06:31 Resp 16 08/22/19 06:31 BP 116/81 08/22/19 06:31 Pulse Ox 95 08/21/19 07:08 Intake & Output 08/21/19 08/22/19 08/22/19 18:59 06:59 18:59 Weight 92.669 kg - Exam Mental Status Exam: General Appearance: Patient appears to be stated age is alert, directable. fair hygiene and grooming. Patient has improving eye contact. Behavior: Patient appears hyper and agitated.. Speech: Patient's speech is fluent and pressured. Mood/Affect: Stated mood is good and affect is agitated Suicidality/Homicidality: Patient denies having any suicidal or homicidal ideation intent or plan. Perceptions: Patient denies any auditory or visual hallucinations. Though content/process: There is no evidence of any delusional thought content and thought process is focused on getting discharged Memory and concentration: AOX3, grossly intact for the purposes of this session. Judgment and insight: limited - Constitutional General appearance: Present: average body habitus, no acute distress, obese - Labs CBC & Chem 7: 08/21/19 07:00 08/21/19 07:00 Labs: Abnormal Lab Results - Last 24 Hours (Table) 08/21/19 Range/Units 06:30 Urine Opiates Screen Positive H (Negative) ng/mL U Cannabinoids Screen Positive H (Negative) ng/mL Urine Alcohol Positive H (Negative) mg/dL Assessment and Plan Assessment: Assessment Adjustment disorder R/O Major Depressive disorder Plan: PLAN: -At this time patient continues to meet criteria for inpatient psychiatric admission. patient signed for voluntary admission and also signed for medication consent which is placed in patient's chart. -Would recommend the following medication changes/additions: after reviewing patient's labs and persistently elevated LFTs, Will discontinue Cymbalta and swi tch patient onto Zoloft 50 mg daily for anxiety/mood. We'll increase Vistaril 50 mg every 8 hours when necessary for anxiety. We'll increase Remeron 30 mg daily at bedtime for mood/insomnia. added melatonin 6 mg daily at bedtime for sleep. -Ativan and Geodon PRN for agitation/aggression -Started thiamine, MVM for etoh use -Patient was counselled on substance abuse and desired to cut back on use -Patient was informed of the risks, benefits and side effects of the medication and patient verbally consented to taking the medications. Patient signed med consent form and was placed in chart. -NRT - nicotine patch -SW on board for discharge planning.
[2019-08-23 07:11] VITALS: BP 142/83; PULSE 65; TEMP 97.5
[2019-08-23] MEDS: NICOTINE 14MG/24HR PATCH TRANSDERM SCH (09:00)
[2019-08-23] MEDS: buPROPion XL 150 MG TAB.ER.24H PO SCH (09:00)
--- NOTE | 2019-08-23 11:44 | P.PN ---
Subjective Discharge Note: Patient was seen and chart was reviewed. Case discussed with staff. The patient reports doing better and denies any new problems at this time. Patient states that He was going to groups and trying to participate as best as [he] could. Patient any depression or anxiety. [He ]states that [he] is feeling more supported on the unit at this time. [He] admits to fair energy and fair appetite. He claims that he slept good last night and does not remember having a nightmare. At this time patient denies any suicidal or homical ideations, intent or plan. Patient denies any auditory, visual hallucinations and denies any paranoia or delusions. Patient denies any side effects from the medications and has been compliant with meds. Objective - Vital Signs Vital signs: Vital Signs Temp 97.5 F L 08/23/19 05:40 Pulse 65 08/23/19 05:40 Resp 16 08/23/19 05:40 BP 142/83 08/23/19 05:40 Pulse Ox 95 08/21/19 07:08 - Exam Mental Status Exam: General Appearance: Patient appears to be stated age is alert, directable. fair hygiene and grooming. Patient has improving eye contact. Behavior: Patient is seated without any agitated behavior. Speech: Patient's speech is fluent and nonpressured. soft tone. Mood/Affect: Patient reports their mood/anxiety is mildly improving, affect is congruent Suicidality/Homicidality: Patient denies having any suicidal or homicidal ideation intent or plan. Perceptions: Patient denies any auditory or visual hallucinations. Though content/process: There is no evidence of any delusional thought content and thought process is linear and goal-directed. Memory and concentration: AOX3, grossly intact for the purposes of this session. Judgment and insight: Fair - Labs CBC & Chem 7: 08/21/19 07:00 08/21/19 07:00 Assessment and Plan Assessment: Assessment Major depressive disorder, without psychotic features Plan: Plan: -One-to-one supportive psychotherapy was provided Discussed discharge plans. Motor discharge home with family today with plans to follow-up as an outpatient.
--- NOTE | 2019-08-23 11:54 | P.DS ---
Providers Date of admission: 08/21/19 05:28 Attending physician: Sunday Potts MD Consults: 08/21/19 05:35 Consult Physician Routine Consulting Provider: Sabino Reeves Consult Reason/Comments: medical H and P Do you want consulting provider notified?: Yes, Notify in am Primary care physician: Chad Leija - Discharge Diagnosis(es) (1) Major depressive disorder, recurrent, unspecified Current Visit: Yes Status: Acute Hospital Course: IDENTIFYING DATA: 54-year-old male patient HPI: patient admitted to the inpatient psychiatric unit regarding concerns of suicidal thinking. Patient states that he went out on his birthday the and got drunk and the police were called. He states he doesn't remember saying anything but says he might of said something that got him here. Patient relays that they said that he was threatening his girlfriend's mom and that booth manager were called. He denies having had thoughts of suicide lately. Per chart record there was some verbalization of suicidal ideation that prompted his admission. He makes reference to after child-support having $81 per week. Regarding his mood lately says it's been doing fine he has been paying his child support and working every day. He has concerns about losing his job with being in the hospital. PAST PSYCHIATRIC HISTORY: one prior admission where he had been drinking as well. She denies any history of suicide attempts. He says his been off antidepressant for about a year and a half. He was taking something that was 300 mg. He did okay with it. He does see a counselor once or twice a month , currently not seeing a psychiatrist. PMH:arthritis, multiple broken bones ALLERGIES: no known ALLERGIES MEDICATIONS: Tylenol when necessary, Maalox when necessary, Ativan when necessary, milk of magnesia when necessary, Habitrol patch, Geodon when necessary CHEMICAL DEPENDENCY HISTORY: drinks alcohol about every couple of months. Marijuana he uses at bedtime every day. FAMILY PSYCHIATRIC HISTORY: denies FAMILY CHEMICAL DEPENDENCY HISTORY: none known at this time SOCIAL HISTORY: says he lives in a pop-up trailer an apartment. He works estimating 40 hours a week. He's been once and . He has a current girlfriend of 2 years. He has 3 children from his marriage. He states he is working at being able to be back in his children's life. MENTAL STATUS EXAM: he is alert and cooperative with the interview. His speech is fluent, not rapid or pressured. Thought processes organized. His mood is described as "anxious." He says he is worried about his job. He denies any thoughts of harm to self or others. No evidence of psychosis or significant agitation. Cognitively appears very grossly intact. I do not note any significant disorientation or memory disturbance. His insight is adequate, judgment shows evidence of recent impairment. 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 Patient was also ordered routine laboratory studies and a medical consultation was also ordered. Patient also was returned to his prior medications for his medical problems. Patient was also placed on Ativan for alcohol withdrawal symptoms, prescribed thiamine and folic acid. Discussed a treatment plan with the patient. The patient declined any treatment for depression at this time. The patient insisted that it was a one-time thing and he hadn't had alcohol in 8 years prior. The patient reports that his mood has been good and he does not think that he needs any treatment for mood disorder. The region was kept under observation. He was pleasant and cooperative on the unit. He insisted that he needed to be discharged as soon as possible. Patient was pleasant and cooperative on the unit. He attended and participated actively in milieu therapy. The patient reported good sleep and appetite. Discharge plans were initiated and family meeting was done with his mother and girlfriend. The family expressed no concerns about him getting discharged. Patient slowly improved, the Ativan for alcohol withdrawal was discontinued. Discharge Mental Status: Appearance/Attitude: Patient is neatly and appropriately dressed, makes eye contact and was cooperative. Behavior: Patient did not display any psychomotor agitation or retardation. Speech/Language: Patient's speech was spontaneous of normal volume and rhythm and he was coherent Thought Process: Patient was goal-directed there is no evidence of loose association or flight of ideas Thought Content: Patient denied any auditory or visual hallucinations no delusions or paranoid ideation were elicited. Suicidal/Homicidal Ideation: Patient denies any current suicidal or homicidal ideation Sensorium/Cognition: Patient is alert and oriented to person, place, and time and his recent and remote memory were grossly intact Mood/Affect: Patient's mood is more positive and his affect is appropriate to his mood Insight/Judgment: Patient's insight and judgment are fair Risk Assessment: Patient's risk for readmission is moderate to the patient not be compliant with medications and follow-up care, use alcohol and/or drugs Discharge Plan: Patient will be discharged home with his mother. [facility] encouraged to be compliant with treatment and follow-up appointments and to avoid all alcohol and drugs. Patient Condition at Discharge: Stable Patient Condition at Discharge: Stable Plan - Discharge Summary Discharge Rx Participant: No Follow up Appointment(s)/Referral(s): Nadeem Mccormack [Outside] - 08/30/19 12:30 pm ([facility] If unable to make appointment please call to [facility]) Chad Leija MD [Primary Care Provider] - 1-2 days Patient Instructions/Handouts: Suicide Prevention (DC) Activity/Diet/Wound Care/Special Instructions: Activity and diet as tolerated. Avoid the use of street drugs and alcohol. Take all medications as prescribed. When you are in need of refills on your medications please contact your medical provider and/or outpatient psychiatrist to have this done. Please go to scheduled outpatient appointment for aftercare treatment. If symptoms return or become worse, call the crisis line at and/or go to the nearest emergency room for evaluation. Discharge Disposition: HOME SELF-CARE
== END 2019-08-23 13:15 | disposition home or self-care (01) | DRG 885 ==
LOC: EC 03:07 → 3MHU 05:28
PROVIDERS: ADMIT Psychiatry & Neurology Psychiatry; ATTEND Psychiatry & Neurology Psychiatry
DX: F33.9 Major depressive disorder, recurrent, unspecified (principal); R45.851 Suicidal ideations; F10.94 Alcohol use, unspecified with alcohol-induced mood disorder; F17.210 Nicotine dependence, cigarettes, uncomplicated; F51.01 Primary insomnia; F12.90 Cannabis use, unspecified, uncomplicated; M19.90 Unspecified osteoarthritis, unspecified site
CPT/HCPCS: 80053; 80061; 80306; 81003; 82075; 82248; 83036; 84443; 85025; 99285

== ENCOUNTER 2020-05-31 18:10 | Emergency (ER) | payer OTHER ==
[2020-05-31] MEDS ORDERED: SODIUM CHLORIDE 0.9% 500 ML 500 ML IV STA (18:26)
[2020-05-31] MEDS ORDERED: SODIUM CHLORIDE 0.9% 1,000 ML IV STA (18:26)
--- NOTE | 2020-05-31 18:45 | ED ---
Weakness HPI - General Chief complaint: Weakness Stated complaint: fatigue Time Seen by Provider: 05/31/20 18:26 Source: patient, RN notes reviewed, old records reviewed Mode of arrival: ambulatory Limitations: no limitations - History of Present Illness Initial comments: This is a 34-year-old male presented today while just 3 days of not feeling well. No sick contacts travel history, patient is not a fevers similar symptoms are developed in his son. He has had some sweating at night. Otherwise patient has no significant complaints no new medications denies taking or alcohol MD Complaint: generalized weakness, lack of energy -: days(s) (3) Location: generalized Severity: mild Consistency: constant Improves with: none Worsens with: none Context: recent illness, history of similar, depression Associated Symptoms: denies other symptoms - Related Data Previous Rx's Medication Instructions Recorded buPROPion XL [Wellbutrin XL] 150 mg PO DAILY #30 tab.er.24h 08/23/19 Allergies Allergy/AdvReac Type Severity Reaction Status Date / Time No Known Allergies Allergy Verified 05/31/20 18:20 Review of Systems ROS Statement: Those systems with pertinent positive or pertinent negative responses have been documented in the HPI. ROS Other: All systems not noted in ROS Statement are negative. Past Medical History Past Medical History: No Reported History Additional Past Medical History / Comment(s): ganglian cyst bilat wrist History of Any Multi-Drug Resistant Organisms: None Reported Past Surgical History: Cholecystectomy, Orthopedic Surgery Additional Past Surgical History / Comment(s): bilat ankle surgery, right knee x 4 Past Anesthesia/Blood Transfusion Reactions: No Reported Reaction Past Psychological History: Depression Smoking Status: Current every day smoker Past Alcohol Use History: Occasional Past Drug Use History: Marijuana General Exam Limitations: no limitations General appearance: alert, in no apparent distress Head exam: Present: atraumatic, normocephalic, normal inspection Eye exam: Present: normal appearance, PERRL, EOMI. Absent: scleral icterus, conjunctival injection, periorbital swelling ENT exam: Present: normal exam, mucous membranes moist Neck exam: Present: normal inspection. Absent: tenderness, meningismus, lymphadenopathy Respiratory exam: Present: normal lung sounds bilaterally. Absent: respiratory distress, wheezes, rales, rhonchi, stridor Cardiovascular Exam: Present: regular rate, normal rhythm, normal heart sounds. Absent: systolic murmur, diastolic murmur, rubs, gallop, clicks GI/Abdominal exam: Present: soft, normal bowel sounds. Absent: distended, tenderness, guarding, rebound, rigid Extremities exam: Present: normal inspection, full ROM, normal capillary refill. Absent: tenderness, pedal edema, joint swelling, calf tenderness Back exam: Present: normal inspection Neurological exam: Present: alert, oriented X3, CN II-XII intact Psychiatric exam: Present: normal affect, normal mood Skin exam: Present: warm, dry, intact, normal color. Absent: rash Course Vital Signs 05/31/20 18:18 Temperature 98.0 F Pulse Rate 69 Respiratory 18 Rate Blood Pressure 154/95 O2 Sat by Pulse 97 Oximetry - Reevaluation(s) Reevaluation #1: 05/31/20 20:20 Medical records reviewed Reevaluation #2: 05/31/20 20:20 Patient still feeling weak and fatigued Reevaluation #3: 05/31/20 20:21 Patient is informed results and questions are answered EKG Findings - EKG Comments: EKG Findings:: EKG is sinus rhythm 67 [place] 148 QRS 98 QTc 414 Medical Decision Making - Medical Decision Making 54 male to the ER for evaluation bile-type syndrome. Fatigue and weakness. Patient can be discharged home - Lab Data Result diagrams: 05/31/20 18:57 05/31/20 18:57 Lab Results 05/31/20 05/31/20 05/31/20 Range/Units 18:57 18:57 18:57 WBC 8.9 (3.8-10.6) k/uL RBC 5.03 (4.30-5.90) m/uL Hgb 16.2 (13.0-17.5) gm/dL Hct 48.0 (39.0-53.0) % MCV 95.5 (80.0-100.0) fL MCH 32.2 (25.0-35.0) pg MCHC 33.7 (31.0-37.0) g/dL RDW 13.0 (11.5-15.5) % Plt Count 240 (150-450) k/uL Neutrophils % 63 % Lymphocytes % 25 % Monocytes % 7 % Eosinophils % 2 % Basophils % 1 % Neutrophils # 5.6 (1.3-7.7) k/uL Lymphocytes # 2.3 (1.0-4.8) k/uL Monocytes # 0.6 (0-1.0) k/uL Eosinophils # 0.2 (0-0.7) k/uL Basophils # 0.1 (0-0.2) k/uL Sodium 135 L (137-145) mmol/L Potassium 4.1 (3.5-5.1) mmol/L Chloride 105 (98-107) mmol/L Carbon Dioxide 24 (22-30) mmol/L Anion Gap 6 mmol/L BUN 15 (9-20) mg/dL Creatinine 1.13 (0.66-1.25) mg/dL Est GFR (CKD-EPI)AfAm 86 (>60 ml/min/1.73 sqM) Est GFR (CKD-EPI)NonAf 75 (>60 ml/min/1.73 sqM) Glucose 117 H (74-99) mg/dL Plasma Lactic Acid Marc 2.4 H* (0.7-2.0) mmol/L Calcium 9.4 (8.4-10.2) mg/dL Phosphorus 3.7 (2.5-4.5) mg/dL Magnesium 2.2 (1.6-2.3) mg/dL Total Bilirubin 0.7 (0.2-1.3) mg/dL AST 33 (17-59) U/L ALT 36 (4-49) U/L Alkaline Phosphatase 69 (38-126) U/L Creatine Kinase 188 H (55-170) U/L Troponin I (0.000-0.034) ng/mL NT-Pro-B Natriuret Pep pg/mL Total Protein 7.5 (6.3-8.2) g/dL Albumin 4.5 (3.5-5.0) g/dL Urine Color Urine Appearance (Clear) Urine pH (5.0-8.0) Ur Specific Declo (1.001-1.035) Urine Protein (Negative) Urine Glucose (UA) (Negative) Urine Ketones (Negative) Urine Blood (Negative) Urine Nitrite (Negative) Urine Bilirubin (Negative) Urine Urobilinogen (<2.0) mg/dL Ur Leukocyte Esterase (Negative) Influenza Type A RNA (Not Detectd) Influenza Type B (PCR) (Not Detectd) 10/01/20 10/01/20 10/01/20 Range/Units 18:57 18:57 19:02 WBC (3.8-10.6) k/uL RBC (4.30-5.90) m/uL Hgb (13.0-17.5) gm/dL Hct (39.0-53.0) % MCV (80.0-100.0) fL MCH (25.0-35.0) pg MCHC (31.0-37.0) g/dL RDW (11.5-15.5) % Plt Count (150-450) k/uL Neutrophils % % Lymphocytes % % Monocytes % % Eosinophils % % Basophils % % Neutrophils # (1.3-7.7) k/uL Lymphocytes # (1.0-4.8) k/uL Monocytes # (0-1.0) k/uL Eosinophils # (0-0.7) k/uL Basophils # (0-0.2) k/uL Sodium (137-145) mmol/L Potassium (3.5-5.1) mmol/L Chloride (98-107) mmol/L Carbon Dioxide (22-30) mmol/L Anion Gap mmol/L BUN (9-20) mg/dL Creatinine (0.66-1.25) mg/dL Est GFR (CKD-EPI)AfAm (>60 ml/min/1.73 sqM) Est GFR (CKD-EPI)NonAf (>60 ml/min/1.73 sqM) Glucose (74-99) mg/dL Plasma Lactic Acid Marc (0.7-2.0) mmol/L Calcium (8.4-10.2) mg/dL Phosphorus (2.5-4.5) mg/dL Magnesium (1.6-2.3) mg/dL Total Bilirubin (0.2-1.3) mg/dL AST (17-59) U/L ALT (4-49) U/L Alkaline Phosphatase (38-126) U/L Creatine Kinase (55-170) U/L Troponin I <0.012 (0.000-0.034) ng/mL NT-Pro-B Natriuret Pep 43 pg/mL Total Protein (6.3-8.2) g/dL Albumin (3.5-5.0) g/dL Urine Color Yellow Urine Appearance Clear (Clear) Urine pH 5.5 (5.0-8.0) Ur Specific Declo 1.017 (1.001-1.035) Urine Protein Negative (Negative) Urine Glucose (UA) Negative (Negative) Urine Ketones Negative (Negative) Urine Blood Negative (Negative) Urine Nitrite Negative (Negative) Urine Bilirubin Negative (Negative) Urine Urobilinogen <2.0 (<2.0) mg/dL Ur Leukocyte Esterase Negative (Negative) Influenza Type A RNA (Not Detectd) Influenza Type B (PCR) (Not Detectd) 05/31/20 Range/Units 19:33 WBC (3.8-10.6) k/uL RBC (4.30-5.90) m/uL Hgb (13.0-17.5) gm/dL Hct (39.0-53.0) % MCV (80.0-100.0) fL MCH (25.0-35.0) pg MCHC (31.0-37.0) g/dL RDW (11.5-15.5) % Plt Count (150-450) k/uL Neutrophils % % Lymphocytes % % Monocytes % % Eosinophils % % Basophils % % Neutrophils # (1.3-7.7) k/uL Lymphocytes # (1.0-4.8) k/uL Monocytes # (0-1.0) k/uL Eosinophils # (0-0.7) k/uL Basophils # (0-0.2) k/uL Sodium (137-145) mmol/L Potassium (3.5-5.1) mmol/L Chloride (98-107) mmol/L Carbon Dioxide (22-30) mmol/L Anion Gap mmol/L BUN (9-20) mg/dL Creatinine (0.66-1.25) mg/dL Est GFR (CKD-EPI)AfAm (>60 ml/min/1.73 sqM) Est GFR (CKD-EPI)NonAf (>60 ml/min/1.73 sqM) Glucose (74-99) mg/dL Plasma Lactic Acid Marc (0.7-2.0) mmol/L Calcium (8.4-10.2) mg/dL Phosphorus (2.5-4.5) mg/dL Magnesium (1.6-2.3) mg/dL Total Bilirubin (0.2-1.3) mg/dL AST (17-59) U/L ALT (4-49) U/L Alkaline Phosphatase (38-126) U/L Creatine Kinase (55-170) U/L Troponin I (0.000-0.034) ng/mL NT-Pro-B Natriuret Pep pg/mL Total Protein (6.3-8.2) g/dL Albumin (3.5-5.0) g/dL Urine Color Urine Appearance (Clear) Urine pH (5.0-8.0) Ur Specific Declo (1.001-1.035) Urine Protein (Negative) Urine Glucose (UA) (Negative) Urine Ketones (Negative) Urine Blood (Negative) Urine Nitrite (Negative) Urine Bilirubin (Negative) Urine Urobilinogen (<2.0) mg/dL Ur Leukocyte Esterase (Negative) Influenza Type A RNA Not Detected (Not Detectd) Influenza Type B (PCR) Not Detected (Not Detectd) - Radiology Data Radiology results: report reviewed (Chest x-rays negative for acute disease), image reviewed Disposition Clinical Impression: Dehydration, Weakness, Fatigue, Viral syndrome Disposition: HOME SELF-CARE Condition: Fair Is patient prescribed a controlled substance at d/c from ED?: No Referrals: Chad Leija MD [Primary Care Provider] - 1-2 days
[2020-05-31 19:31] LABS: Basophils # (A) 0.1 k/uL (0-0.2); Basophils % (A) 1 %; Eosinophils # (A) 0.2 k/uL (0-0.7); Eosinophils % (A) 2 %; HGB 16.2 gm/dL (13.0-17.5); Lymphocytes # (A) 2.3 k/uL (1.0-4.8); Lymphocytes % (A) 25 %; MCH 32.2 pg (25.0-35.0); MCHC 33.7 g/dL (31.0-37.0); MCV 95.5 fL (80.0-100.0); Mean Platelet Volume 6.1; Monocytes # (A) 0.6 k/uL (0-1.0); Monocytes % (A) 7 %; Neutrophils # (A) 5.6 k/uL (1.3-7.7); Neutrophils % (A) 63 %; Platelet Count 240 k/uL (150-450); RBC 5.03 m/uL (4.30-5.90); WBC 8.9 k/uL (3.8-10.6)
[2020-05-31 19:39] LABS: Albumin 4.5 g/dL (3.5-5.0); Calcium 9.4 mg/dL (8.4-10.2); Magnesium 2.2 mg/dL (1.6-2.3); Phosphorus 3.7 mg/dL (2.5-4.5); Potassium 4.1 mmol/L (3.5-5.1); Total Bilirubin 0.7 mg/dL (0.2-1.3); Total Protein 7.5 g/dL (6.3-8.2)
[2020-05-31 19:49] LABS: Appearance,Urine Clear (Clear); Bilirubin,Urine Negative (Negative); Blood,Urine Negative (Negative); Color,Urine Yellow; Glucose,Urine (UA) Negative (Negative); Ketones,Urine Negative (Negative); Leukocyte Esterase,Urine Negative (Negative); Nitrite,Urine Negative (Negative); PH, Urine 5.5 (5.0-8.0); Protein,Urine Negative (Negative); Specific Gravity,Urine 1.017 (1.001-1.035); Urobilinogen,Urine <2.0 mg/dL (<2.0)
--- NOTE | 2020-05-31 19:56 | XR ---
EXAMINATION TYPE: XR chest 2V DATE OF EXAM: 05/31/2020 COMPARISON: NONE HISTORY: Weakness TECHNIQUE: 2 views FINDINGS: Heart and mediastinum are normal. Lungs are clear. Diaphragm is normal. Bony thorax appears normal. There are chest leads. IMPRESSION: Normal chest.
[2020-05-31 20:36] LABS: C Reactive Protein <5.0 mg/L (<10.0); LDH 508 U/L (313-618)
[2020-05-31 20:47] VITALS: BP 120/88; PULSE 67; RESP 18; TEMP 98.7
== END 2020-05-31 20:51 | disposition home or self-care (01) ==
LOC: EC 18:10
DX: E86.0 Dehydration (principal); B34.9 Viral infection, unspecified; F17.200 Nicotine dependence, unspecified, uncomplicated; Z20.828 Contact with and (suspected) exposure to other viral communicable diseases
CPT/HCPCS: 36415; 93005; 83880; 80053; 82550; 83605; 83615; 83690; 83735; 84100; 84484; 85025; 85384; 86140; 81003; 87502; 71046; 99285; 96360; U0003

== ENCOUNTER → 2022-03-04 | Outpatient (CLI) | payer OTHER ==
[2022-03-04 18:14] LABS: Basophils # (A) 0.03 X 10*3/uL (0.00-0.10); Basophils % (A) 0.7 %; Eosinophils # (A) 0.08 X 10*3/uL (0.04-0.35); Eosinophils % (A) 1.8 %; HCT 46.8 % (39.6-50.0); HGB 15.1 g/dL (13.0-17.0); Immature Grans, Automated 0.2 %; Lymphocytes # (A) 1.47 X 10*3/uL (0.90-5.00); Lymphocytes % (A) 33.8 %; MCH 32.2 pg (27.0-32.0); MCHC 32.3 g/dL (32.0-37.0); MCV 99.8 fL (80.0-97.0); Mean Platelet Volume 8.4 fL (9.5-12.2); Monocytes # (A) 0.39 X 10*3/uL (0.20-1.00); NRBC Per 100 WBC 0 /100 WBCS (0.0-0.0); Neutrophils # (A) 2.37 X 10*3/uL (1.80-7.70); Neutrophils % (A) 54.5 %; Platelet Count 212 X 10*3/uL (140-440); RBC 4.69 X 10*6/uL (4.40-5.60); RDW 14.4 % (11.5-14.5); WBC 4.35 X 10*3/uL (4.50-10.00)
[2022-03-04 18:52] LABS: Appearance,Urine Clear (Clear); Bilirubin,Urine Negative (Negative); Blood,Urine Negative (Negative); Color,Urine Yellow (Yellow); Ketones,Urine Negative (Negative); Nitrite,Urine Negative (Negative); Urobilinogen,Urine 0.2 (0.2,1.0)
[2022-03-04 19:33] LABS: African American GFR (CKD) 117.4 (60.0-200.0); BUN/Creat Ratio 16.13 Ratio (12.00-20.00); Blood Urea Nitrogen 12.9 mg/dL (9.0-27.0); Calcium 9.2 mg/dL (8.7-10.3); Non-African American GFR(CKD) 101.3 (60.0-200.0); Potassium 4.7 mmol/L (3.5-5.5)
== END | disposition home or self-care (01) ==
LOC: LABPAT 10:22
PROVIDERS: ATTEND Urology
DX: Z01.812 Encounter for preprocedural laboratory examination (principal); N40.1 Benign prostatic hyperplasia with lower urinary tract symptoms
CPT/HCPCS: 80048; 81003; 85025; 87086

== ENCOUNTER 2022-03-10 06:24 | Day surgery (SDC) | payer OTHER ==
[2022-03-07 09:28] VITALS: BMI 26.1
--- NOTE | 2022-03-09 22:06 | P.HPIHPCON ---
History of Present Illness This is a 56 yo male with hx of BPH, he has bothersome urinary symptoms and has failed medical therapy. Option of Urolift vs Turp were discussed with him. risk and benefit of each approach was discussed with him details. He agreed to proceed with urolift. Risk of bleeding, infection, urinary inconteninc and persistent symptoms were discussed. He understood all the risk and agreed to proceed Consent for Procedure: I have explained the operation/procedure to the patient, including the risks, benefits, side effects, alternative therapies (including not receiving the proposed treatment or service), the likelihood of the patient achieving his/her goals, and potential recuperation problems for the procedure/sedation/analgesia, as well as any blood products, if indicated. I also explained to the patient the risks, benefits and side effects of the alternatives, as well as the risks related to not receiving the proposed procedure, care, treatment, or services. Past Medical History Past Medical History: No Reported History, Prostate Disorder Additional Past Medical History / Comment(s): ganglian cyst bilat wrist History of Any Multi-Drug Resistant Organisms: None Reported Past Surgical History: Cholecystectomy, Orthopedic Surgery Additional Past Surgical History / Comment(s): bilat ankle surgery, right knee x 4 Past Anesthesia/Blood Transfusion Reactions: No Reported Reaction Past Psychological History: Depression Smoking Status: Current every day smoker Past Alcohol Use History: Occasional Past Drug Use History: Marijuana - Past Family History Mother Family Medical History: No Reported History Medications and Allergies Home Medications Medication Instructions Recorded Confirmed Type Tamsulosin HCl [Flomax] 0.4 mg PO DAILY 03/07/22 03/07/22 History Venlafaxine HCl ER [Effexor Xr] 150 mg PO DAILY 03/07/22 03/07/22 History Allergies Allergy/AdvReac Type Severity Reaction Status Date / Time No Known Allergies Allergy Verified 03/07/22 09:21 Surgical - Exam - General no distress, no pain - Eyes normal ocular movement, pale - Respiratory normal expansion, normal respiratory effort - Abdomen Abdomen: soft, non tender - Psychiatric oriented to time, oriented to person, oriented to place Assessment and Plan Assessment: -Or for Urolift
[2022-03-10] MEDS ORDERED: SCOPOLAMINE 1 MG/72 HR PATCH TRANSDERM ONE (06:51)
[2022-03-10] MEDS ORDERED: LACTATED RINGERS 1,000 ML IV SCH (06:51)
[2022-03-10] MEDS ORDERED: DEXAMETHASONE SOD PHOSPHATE 4 MG/ML 1 ML VIAL IV ONE (06:51)
[2022-03-10] MEDS ORDERED: MIDAZOLAM 2 MG/2 ML VIAL IV PRN (06:51)
[2022-03-10] MEDS ORDERED: ONDANSETRON 4 MG/2 ML VIAL IVP ONE (06:51)
[2022-03-10] MEDS ORDERED: HYDROmorphone 0.5 MG/0.5 ML SYRINGE IVP PRN (07:00)
[2022-03-10] MEDS ORDERED: LIDOCAINE 1% (10MG/ML) FOR IV START INTRADERMA ONE (07:05)
[2022-03-10] MEDS ORDERED: NEOSTIGMINE 1 MG/ML 10 ML VIAL ONE (07:29)
[2022-03-10] MEDS ORDERED: SUCCINYLCHOLINE CHLORIDE 100 MG/5 ML SYR IV ONE (07:29)
[2022-03-10] MEDS ORDERED: LIDOCAINE 2% INJ 20 MG/ML (2 ML VIAL) ONE (07:29)
[2022-03-10] MEDS ORDERED: GLYCOPYRROLATE 0.2 MG/ML 2 ML VIAL ONE (07:29)
[2022-03-10] MEDS ORDERED: PROPOFOL 10 MG/ML 20 ML VIAL IV ONE (07:29)
[2022-03-10] MEDS ORDERED: fentaNYL (PF) 50 MCG/ML 2 ML AMP ONE (07:29)
[2022-03-10] MEDS ORDERED: MIDAZOLAM 2 MG/2 ML VIAL ONE (07:29)
[2022-03-10] MEDS ORDERED: ROCURONIUM 10 MG/ML (5 ML VIAL) IV ONE (07:29)
--- NOTE | 2022-03-10 08:30 | P.OP ---
Date of Procedure: 03/10/22 Preoperative Diagnosis: BPH Postoperative Diagnosis: Same Procedure(s) Performed: Urolift X 4 Implants: Urolfit clips Anesthesia: DONNIEA Surgeon: Pedro Stiles Estimated Blood Loss (ml): 20 Pathology: none sent Condition: stable Disposition: PACU Indications for Procedure: This is a 56 yo male with hx of BPH, he has bothersome urinary symptoms and has failed medical therapy. Option of Urolift vs Turp were discussed with him. risk and benefit of each approach was discussed with him details. He agreed to proceed with urolift. Risk of bleeding, infection, urinary inconteninc and persistent symptoms were discussed. He understood all the risk and agreed to proceed Description of Procedure: Patient was brought to the operating room, general anesthesia was induced. He was prepped and draped in sterile fashion and placed in dorsal lithotomy position. Cystoscopy fitted with 20-[place] sheath was inserted per urethra, cystoscopy was performed which showed no abnormality within the bladder, of note patient had bilateral obstructive lateral lobes. Attention was then carried to the urolift implants. A total of 4 implants were placed, 2 on the right side, and 2 on the left side. Implants were placed distal to the bladder neck, but proximal to the Veru. Repeat cystoscopy showed no evidence of implant perforation into the bladder. Repeat cystoscopy also demonstrated an open anterior channel within the prostate. There was no evidence of bleeding, bladder was emptied at end of the case. Patient tolerated the procedure well was taken to PACU in stable condition,
[2022-03-10 08:31] VITALS: TEMP 97.4
[2022-03-10 08:34] VITALS: RESP 16
[2022-03-10 09:29] VITALS: BP 122/85; PULSE 72
== END 2022-03-10 09:45 | disposition home or self-care (01) ==
LOC: OR 06:24
PROVIDERS: ATTEND Urology
DX: N40.1 Benign prostatic hyperplasia with lower urinary tract symptoms (principal); N13.8 Other obstructive and reflux uropathy; Z90.49 Acquired absence of other specified parts of digestive tract; F32.A Depression, unspecified; F17.200 Nicotine dependence, unspecified, uncomplicated; Z79.899 Other long term (current) drug therapy
CPT/HCPCS: 52441; 52442 ×3; L8699; J2250; J1100; J2710; J0690; J2405; J3010; J0330; J2704; J2001

== ENCOUNTER → 2023-08-10 | Outpatient (CLI) | payer OTHER ==
--- NOTE | 2023-08-11 17:55 | MR ---
EXAMINATION TYPE: MR brain wo/w con DATE OF EXAM: 08/10/2023 6:50 PM CLINICAL INDICATION:Male, 57 years old with history of R42 DIZZINESS R51.9 ONSET HEADACHE; PHH, Heada ches ,pain back of head, dizziness. COMPARISON: None TECHNIQUE: Multi planar, multi sequence imaging was performed through the brain including: T1, T2, In version recovery, susceptibility weighted imaging and gradient echo imaging and Diffusion weighted im aging. The patient was then given intravenous contrast and multi planar, T1 fat-saturation images wer e obtained. IV Contrast: 9 cc Gadavist FINDINGS: The herrmann-white junctions, ventricular system, basal cisterns appear unremarkable. Diffusion-weighted imaging shows no evidence of restricted diffusion to suggest acute/subacute infarct. Intracranial ar terial flow voids are maintained. Midline structures show no abnormality. Minimal scattered foci of h igh T2 signal intensity are seen within the periventricular white matter. The susceptibility weighted images do not reveal any evidence for micro-hemorrhage. After administration of gadolinium, no abnor mal enhancement is seen. The bone marrow signal is within normal limits. Paranasal sinuses and mastoid air cells: No significant paranasal sinus disease. Trace mastoid air ce ll high T2 signal in the right mastoid air cells. Visualized orbits: Orbital contents are intact. IMPRESSION: 1. No evidence of intracranial mass, acute/subacute infarct, or abnormal enhancement. 2. Minimal nonspecific white matter changes, likely related to small vessel ischemic disease. 3. Trace right mastoid air cell effusion.
== END | disposition home or self-care (01) ==
LOC: RADMRIMAIN 18:05
PROVIDERS: ATTEND Family Medicine
DX: R90.82 White matter disease, unspecified (principal); J34.89 Other specified disorders of nose and nasal sinuses; R42 Dizziness and giddiness; R51.9 Headache, unspecified
CPT/HCPCS: 70553; A9585